=== PATIENT | male | born 1965 | race Caucasian/White ===

== ENCOUNTER → 2017-08-07 | Outpatient (CLI) | payer OTHER, MEDICAID | LOC: CIMAGING 08:37 | PROVIDERS: ATTEND Internal Medicine | DX: R10.11 Right upper quadrant pain (principal); R07.9 Chest pain, unspecified; M54.9 Dorsalgia, unspecified; E78.5 Hyperlipidemia, unspecified; R16.1 Splenomegaly, not elsewhere classified; Z87.891 Personal history of nicotine dependence | CPT/HCPCS: 74150-PO ==

== ENCOUNTER 2017-10-29 16:49 | Emergency (ER) | payer OTHER, MEDICAID ==
--- NOTE | 2017-10-29 17:36 | EDPHY ---
H & P Stated Complaint: CP/arms numb Time Seen by Provider: 10/29/17 17:31 HPI/ROS: CHIEF COMPLAINT: Paresthesias HISTORY OF PRESENT ILLNESS: The patient presents the ED with complaints of paresthesias in his left right arm with some mild associated chest pressure. The symptoms have been present for the past day. The patient denies any exertional chest pain or shortness of breath. He denies fever, cough or congestion. He denies pleuritic chest pain. The patient is under the care of Dr. Andre from Cardiology. He has a history of atypical chest pain. He has no history of acute coronary syndrome or coronary artery disease. The patient did recently start taking potassium supplementation when he started a new medication for his hypertension. He is taking 20 mEq of potassium a day. REVIEW OF SYSTEMS: A comprehensive 10 point review of systems is otherwise negative aside from elements mentioned in the history of present illness. Source: Patient Exam Limitations: No limitations - Personal History Current Tetanus/Diphtheria Vaccine: Yes Tetanus Vaccine Date: 2014 - Medical/Surgical History Hx Asthma: No Hx Chronic Respiratory Disease: No Hx Diabetes: No Hx Cardiac Disease: Yes Hx Renal Disease: No Hx Cirrhosis: No Hx Alcoholism: No Hx HIV/AIDS: No Hx Splenectomy or Spleen Trauma: No Other PMH: hyperlipidemia, htn, insomnia, GERD - Social History Smoking Status: Never smoked - Physical Exam Exam: General Appearance: Alert, no distress Eyes: Pupils equal and round no pallor or injection ENT, Mouth: Mucous membranes moist Respiratory: There are no retractions, lungs are clear to auscultation Cardiovascular: Regular rate and rhythm Gastrointestinal: Abdomen is soft and nontender, no masses, bowel sounds normal Neurological: A&O, normal motor function, normal sensory exam, normal cranial nerves Skin: Warm and dry, no rashes Musculoskeletal: Neck is supple nontender Extremities: symmetrical, full range of motion Constitutional: Initial Vital Signs Temperature (C) 36.6 C 10/29/17 16:52 Heart Rate 91 10/29/17 16:52 Respiratory Rate 18 10/29/17 16:52 Blood Pressure 143/97 H 10/29/17 16:52 O2 Sat (%) 97 10/29/17 16:52 O2 Delivery Mode Room Air Allergies/Adverse Reactions: amoxicillin Allergy (Verified 10/29/17 16:55) ceftriaxone Allergy (Verified 10/29/17 16:55) cephalexin monohydrate [From Keflex] Allergy (Verified 10/29/17 16:55) clindamycin Allergy (Verified 10/29/17 16:55) cyclobenzaprine HCl [From Flexeril] Allergy (Verified 10/29/17 16:55) Home Medications: Medication Instructions Recorded Ambien 10 mg 08/18/14 Amitriptyline 100 mg 08/18/14 Hydrochlorothiazide 08/18/14 Lipitor 08/18/14 Nexium 08/18/14 Potassium Chloride [K-Tab ER] 20 meq PO DAILY #7 tablet.er 10/29/17 Medical Decision Making - Diagnostics EKG Interpretation: EKG: Complete interpretation has been separately recorded in the [email or web address] archive. Summary impression: Sinus rhythm, rate 79, no ST segment elevation or depression. Imaging Results: Imaging Impressions Chest X-Ray 10/29/17 17:44 Impression:1. Mild T7 compression of unknown age. 2. 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 Recommendation: We would be happy to review any old outside x-rays, if and when they become available. ED Course/Re-evaluation: The patient presents to the ED with complaints primarily of paresthesias involving his upper extremities for the past day. He has had some vague chest discomfort which he has had in the past. The patient has been under the care of Dr. Andre from Cardiology. He reports a negative recent stress test. In the emergency department today the patient's EKG demonstrates no evidence of ischemia. The patient's troponin is also normal. The patient's D-dimer is negative which I feel adequately excludes pulmonary embolism. The patient was noted to be mildly hypokalemic which certainly may being etiology of his paresthesias. The patient did receive potassium replacement orally in the emergency department. The patient reports that his symptoms have improved after receiving potassium supplementation in the ED. The patient will be instructed to increase his potassium to 40 mEq a day for the next week. 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 Differential Diagnosis: Differential diagnosis considered includes acute coronary syndrome, pericarditis , myocarditis, esophageal spasm, cervical radiculopathy, metabolic derangement - Data Points Laboratory Results: Laboratory Results 10/29/17 17:40 10/29/17 17:40 10/29/17 10/29/17 10/29/17 17:42 17:40 17:40 WBC RBC Hgb Hct MCV MCH MCHC RDW Plt Count MPV Neut % (Auto) Lymph % (Auto) [place] % (Auto) Eos % (Auto) Baso % (Auto) Nucleat RBC Rel Count Absolute Neuts (auto) Absolute Lymphs (auto) Absolute Monos (auto) Absolute Eos (auto) Absolute Basos (auto) Absolute Nucleated RBC Immature Gran % Immature Gran # D-Dimer < 0.27 ug/mLFEU ug/mLFEU (0.00-0.50) Sodium 136 mEq/L mEq/L (135-145) Potassium 2.9 mEq/L L mEq/L (3.3-5.0) Chloride 99 mEq/L mEq/L (97-110) Carbon Dioxide 25 mEq/l mEq/l (22-31) Anion Gap 12 mEq/L mEq/L (8-16) BUN 18 mg/dL mg/dL (7-23) Creatinine 1.0 mg/dL mg/dL (0.7-1.3) Estimated GFR > 60 Glucose 109 mg/dL H mg/dL (70-100) Calcium 9.0 mg/dL mg/dL (8.5-10.4) POC Troponin I 0.00 ng/mL ng/mL (0.00-0.08) 10/29/17 17:40 WBC 4.99 10^3/uL 10^3/uL (3.80-9.50) RBC 4.53 10^6/uL 10^6/uL (4.40-6.38) Hgb 14.4 g/dL g/dL (13.7-17.5) Hct 39.7 % L % (40.0-51.0) MCV 87.6 fL fL (81.5-99.8) MCH 31.8 pg pg (27.9-34.1) MCHC 36.3 g/dL g/dL (32.4-36.7) RDW 12.0 % % (11.5-15.2) Plt Count 171 10^3/uL 10^3/uL (150-400) MPV 11.0 fL fL (8.7-11.7) Neut % (Auto) 57.5 % % (39.3-74.2) Lymph % (Auto) 31.5 % % (15.0-45.0) [place] % (Auto) 8.8 % % (4.5-13.0) Eos % (Auto) 1.0 % % (0.6-7.6) Baso % (Auto) 1.0 % % (0.3-1.7) Nucleat RBC Rel Count 0.0 % % (0.0-0.2) Absolute Neuts (auto) 2.87 10^3/uL 10^3/uL (1.70-6.50) Absolute Lymphs (auto) 1.57 10^3/uL 10^3/uL (1.00-3.00) Absolute Monos (auto) 0.44 10^3/uL 10^3/uL (0.30-0.80) Absolute Eos (auto) 0.05 10^3/uL 10^3/uL (0.03-0.40) Absolute Basos (auto) 0.05 10^3/uL 10^3/uL (0.02-0.10) Absolute Nucleated RBC 0.00 10^3/uL 10^3/uL (0-0.01) Immature Gran % 0.2 % % (0.0-1.1) Immature Gran # 0.01 10^3/uL 10^3/uL (0.00-0.10) D-Dimer Sodium Potassium Chloride Carbon Dioxide Anion Gap BUN Creatinine Estimated GFR Glucose Calcium POC Troponin I Medications Given: Discontinued Medications Potassium Chloride (Potassium Chloride Oral Liquid) 40 meq PO EDNOW ONE Stop: 10/29/17 18:27 Last Admin: 10/29/17 18:47 Dose: 40 meq Point of Care Test Results: Chemistry 10/29/17 17:42 POC Troponin I 0.00 ng/mL ng/mL (0.00-0.08) Departure - Departure Disposition: Home, Routine, Self-Care Clinical Impression: Chest pain, Paresthesias, Hypokalemia Condition: Good Instructions: Hypokalemia (ED) Additional Instructions: Please take potassium supplementation as directed for next 5 days. Return to the ED for markedly worsening symptoms or other concerns. Please follow-up with Cardiology as scheduled. Referrals: Asher Andre MD [Medical Doctor] - As per Instructions Prescriptions: Potassium Chloride [K-Tab ER] 20 meq PO DAILY #7 tablet.er
[2017-10-29 17:56] LABS: PLATELET COUNT 171 10^3/uL (150-400)
[2017-10-29] MEDS ORDERED: POTASSIUM CL 20 MEQ/15 ML UDCUP PO ONE (18:26)
--- NOTE | 2017-10-29 18:30 | CPEKG ---
Test Reason : OPEN Blood Pressure : / mmHG Vent. Rate : 079 BPM Atrial Rate : 082 BPM P-R Int : 195 ms QRS Dur : 115 ms QT Int : 396 ms P-R-T Axes : 044 035 035 degrees QTc Int : 455 ms Sinus rhythm Confirmed by Jordan Mari ([id number]) on 10/29/2017 6:29:21 PM Referred By: Confirmed By:Jordan Mari
[2017-10-29 18:49] VITALS: BP 137/95
== END 2017-10-29 19:23 | disposition home or self-care (01) ==
DX: R07.9 Chest pain, unspecified (principal); R20.2 Paresthesia of skin; E87.6 Hypokalemia; I10 Essential (primary) hypertension
CPT/HCPCS: 84484-PO